=== PATIENT | male | born 1935 | race Caucasian/White ===

== ENCOUNTER 2019-10-13 13:03 | Emergency (ER) | payer OTHER ==
[~2019-10-13] VITALS: Ht 172.7 cm; Wt 71.2 kg
[2019-10-13 14:37] LABS: ABSOLUTE NEUTROPHILS 3.2 thou/uL (1.4-8.2); BASOPHILS 1.1 % (0.0-2.0); EOSINOPHILS 4.5 % (0.0-3.0); HEMATOCRIT 42.4 % (42.0-52.0); HEMOGLOBIN 13.9 gm/dL (14.0-18.0); LYMPHOCYTES 24.1 % (24.0-44.0); MCH 32.6 pg (26.0-34.0); MCHC 32.9 g/dL (28.0-37.0); MCV 99.2 fL (80.0-100.0); MONOCYTES 10.1 % (1.0-8.0); PLATELET COUNT 240 thou/uL (150-400); POLYS 60.2 % (36.0-66.0); RBC 4.27 mil/uL (4.50-6.00); RDW 13.4 % (10.5-14.5); WBC 5.2 thou/uL (4.0-11.0)
[2019-10-13 14:42] LABS: ANION GAP 7 mmol/L (7-16); BUN 19 mg/dL (7-18); CHLORIDE 104 mmol/L (98-107); CO2 28 mmol/L (21-32); GLUCOSE 91 mg/dL (74-106); POTASSIUM 4.1 mmol/L (3.5-5.1); SODIUM 139 mmol/L (136-145)
[2019-10-13 14:48] LABS: TROPONIN-I <0.06 ng/mL (<0.06)
[2019-10-13 15:00] LABS: URINE BILIRUBIN NEGATIVE (Negative); URINE BLOOD NEGATIVE (Negative); URINE CLARITY CLEAR; URINE COLOR YELLOW; URINE GLUCOSE-RANDOM* NEGATIVE (Negative); URINE KETONES NEGATIVE (Negative); URINE LEUKOCYTES-REFLEX NEGATIVE (Negative); URINE NITRITE-REFLEX NEGATIVE (Negative); URINE PROTEIN (DIPSTICK) NEGATIVE (Negative); URINE UROBILINOGEN 0.2 E.U./dl (0.2-1.0)
[2019-10-13 16:12] VITALS: BP 160/72
--- NOTE | 2019-10-16 08:23 | EKG ---
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
== END 2019-10-13 16:12 | disposition home or self-care (01) ==
LOC: ER 13:03
PROVIDERS: Emergency Medicine
DX: R53.1 Weakness (principal); Z88.8 Allergy status to other drugs, medicaments and biological substances